=== PATIENT | female | born 1935 | race Caucasian/White ===

== ENCOUNTER 2019-11-14 21:59 | Inpatient (IN) | payer MEDICARE, SELFPAY ==
[~2019-11-14] VITALS: Ht 154.9 cm; Wt 50.3 kg
--- NOTE | 2019-11-14 21:59 | NUR ---
PT KIM ALS. TAKEN TO BED 10
[2019-11-14 22:03] VITALS: BP 93/42
[2019-11-14] MEDS ORDERED: NACL 0.9% 1,000 ML IV SCH (22:03)
[2019-11-14] MEDS ORDERED: cefTRIAXone 1,000 MG in DEXT 5% MINI-BAG PLUS 50 ML IV ONE (22:05)
--- NOTE | 2019-11-14 22:06 | NUR ---
84 YO F BIBA FOR C/C OF HYPOTENSION AFTER EATING A MARIJUANA BROWNIE. PT IS A&O X0. PER EMS REPORT PT HAD A FALL YESTERDAY ON RIGHT KNEE AND THE SON THOUGHT SHE WAS IN PAIN SO HE FED HER THE BROWNIE. PT HAS GENERALIZED WEAKNESS AND A&O x0 IS HER BASELINE. PUPILS ARE 3MM EQUAL BUT NON REACTIVE. PT PRSENTS WITH ASYMPTOMATIC BRADYCARDIA WITH A HR OF 55. PERIPHERAL PULSES ARE REGULAR AND EQUAL. S1S2 HEARD. LUNG SOUNDS CLEAR THROUGHOUT. BOWEL SOUNDS ACTIVE THROUGHOUT. PT PLACED ON RELIEF COOK. BED LOCKED AND IN LOWEST POSITION. SIDE RAILS X2. SONS NUMBER PER EMS- ALLERGIES UNKNOWN MED HX: UNKNOWN RX: UNKOWN
--- NOTE | 2019-11-14 22:20 | NUR ---
FLU SWAB, COVID SWAB, AND URINE COLLECTED BY [facility] CATH AND TAKEN TO LAB. PT TOLERATED WELL.
--- NOTE | 2019-11-14 22:30 | NUR ---
LAB CALLED TO COLLECT BLOOD SPECIMENS. LAB DRAW WAS UNSUCCESSFUL. ERMD MADE AWARE.
[2019-11-14 22:31] LABS: APPEARANCE,URINE CLEAR (CLEAR); BILIRUBIN,URINE NEGATIVE (NEGATIVE); BLOOD, URINE TRACE-L (NEGATIVE); COLOR,URINE YELLOW (YELLOW); LEUKOCYTE ESTERASE ,URINE NEGATIVE (NEGATIVE); NITRITE, URINE NEGATIVE (NEGATIVE); PH,URINE 5.5 (5.0-9.0); UGLUCOSE NEGATIVE (NEGATIVE)
[2019-11-14] MEDS ORDERED: NACL 0.9% 1,000 ML IV ONE (22:40)
--- NOTE | 2019-11-14 22:45 | NUR ---
PT CALM AND RESTING IN BED. SAFETY MEASURES IN PLACE.
[2019-11-14 23:11] LABS: RBC,URINE NONE SEEN /HPF (0-5); WBC,URINE NONE SEEN /HPF (0-5)
[2019-11-14 23:24] LABS: LYMPHOCYTES # (AUTO) 0.8 K/uL (2.5-16.5); NEUTROPHILS # (AUTO) 14.3 K/uL (1.8-7.7)
[2019-11-14] MEDS ORDERED: ATROPINE 1 MG/10 ML SYR IVP ONE (23:25)
[2019-11-14 23:34] LABS: BASOPHILS % (AUTO) 0.3 % (0.0-2.0); EOSINOPHILS % (AUTO) 0.3 % (0.0-4.0); HEMATOCRIT 22.7 % (36-48); LYMPHOCYTES % (AUTO) 5.1 % (20.5-51.1); MEAN CORPUSCULAR HEMOGLOBIN 25 pg (27-31); MEAN CORPUSCULAR HGB CONC 33 g/dL (33-37); MEAN CORPUSCULAR VOLUME 76.3 fL (80-94); MONOCYTES # (AUTO) 0.6 K/uL (0.8-1.0); MONOCYTES % (AUTO) 3.8 % (1.7-9.3); NEUTROPHILS % (AUTO) 90.5 % (42.2-75.2); PLATELET COUNT (AUTO) 141 K/uL (140-450); RED BLOOD CELL COUNT(AUTO) 2.97 MIL/uL (4.20-5.40); RED CELL DISTRIBUTION WIDTH 18.3 % (11.6-13.7)
[2019-11-14 23:36] LABS: WHITE BLOOD COUNT (AUTO) 15.8 K/uL (4.8-10.8)
[2019-11-14 23:37] LABS: HEMOGLOBIN 7.5 g/dL (12.0-16.0)
[2019-11-14 23:45] LABS: ALBUMIN 1.6 g/dL (3.4-5.0); ANION GAP 15.8 (8-16); ASPARTATE AMINOTRANSFERASE 39 U/L (15-37); CARBON DIOXIDE 15.5 mmol/L (21-32); CHLORIDE 99 mmol/L (98-107); CREATININE 2.5 mg/dL (0.6-1.3); GLUCOSE 91 mg/dL (74-106); SODIUM SERUM 128 mmol/L (136-145); TOTAL BILIRUBIN 0.4 mg/dL (0.0-1.0)
[2019-11-14] MEDS ORDERED: ATROPINE 0.4 MG/ML VIAL IVP ONE (23:45)
[2019-11-14 23:50] LABS: POTASSIUM 2.3 mmol/L (3.5-5.1); UREA NITROGEN, BLOOD 77 mg/dL (7-18)
--- NOTE | 2019-11-14 23:50 | NUR ---
PT TAKEN TO CT
[2019-11-15] VITALS (55 sets, daily range): BP systolic 82–146; BP diastolic 40–82
--- NOTE | 2019-11-15 00:01 | NUR ---
PT RETURN FROM CT
[2019-11-15] MEDS ORDERED: NOREPINEPHRINE 4 MG/4 ML VIAL IV ONE (00:26)
[2019-11-15] MEDS ORDERED: NOREPINEPHRINE 16 MG in DEXTROSE 5% 250 ML IV PRN ×2 (00:35→01:40)
[2019-11-15] MEDS ORDERED: NOREPINEPHRINE 4 MG in DEXTROSE 5% 250 ML IV ONE (00:35)
--- NOTE | 2019-11-15 01:00 | NUR ---
ASSISTED DR BISHOP AT BEDSIDE WITH INSERTING CENTRAL LINE. PT TOLERATED WELL.
--- NOTE | 2019-11-15 01:25 | NUR ---
X-Ray at bedside.
[2019-11-15] MEDS ORDERED: NACL 0.9% 1,000 ML IV SCH (01:38)
[2019-11-15] MEDS ORDERED: ACETAMINOPHEN 325 MG TAB PO PRN (01:40)
[2019-11-15] MEDS ORDERED: SODIUM PHOSPHATE 118 ML ENEM RC PRN (01:40)
[2019-11-15] MEDS ORDERED: DOCUSATE SODIUM 100 MG GELCAP PO PRN (01:40)
[2019-11-15] MEDS ORDERED: AZITHROMYCIN 500 MG in DEXTROSE 5% 250 ML IV SCH (01:40)
[2019-11-15] MEDS ORDERED: ONDANSETRON 4 MG/2 ML VIAL IM/IVP PRN (01:40)
[2019-11-15] MEDS ORDERED: BISACODYL 10 MG SUPP RC PRN (01:40)
[2019-11-15] MEDS ORDERED: KCL 20 MEQ/WATER INJ PREMIX 200 ML IV SCH ×2 (01:40→12:00)
--- NOTE | 2019-11-15 01:50 | NUR ---
PT WOKE UP AND IS TALKING. DENIES HAVING ANY PAIN. EQUAL CHEST RISE AND FALL. BED LOCKED AND IN LOWEST POSITION.
[2019-11-15] MEDS ORDERED: CALCIUM CHLORIDE 10% 1,000 MG in NACL 0.9% 100 ML IV SCH (02:15)
[2019-11-15 02:30] LABS: PROTHROMBIN TIME 9.9 secs (10.8-13.4)
--- NOTE | 2019-11-15 02:30 | NUR ---
PT SLEEPING IN BED COMFORTABLY. PT IS STILL A&OXO. EQUAL CHEST RISE AND FALL.
[2019-11-15 02:39] LABS: FREE T4 (FREE THYROXINE) 0.96 ng/dL (0.76-1.46); MAGNESIUM 1.8 mg/dL (1.8-2.4); PHOSPHORUS 4.3 mg/dL (2.5-4.9); THYROID STIMULATING HORMONE 0.21 uIU/mL (0.34-3.74)
[2019-11-15] MEDS ORDERED: CALCIUM CHLORIDE 10% 100 MG/ML SYR IVP ONE (03:05)
[2019-11-15] MEDS ORDERED: AZITHROMYCIN 500 MG INJ VIAL IV ONE (03:06)
[2019-11-15 03:40] LABS: BARBITURATE, URINE NEGATIVE ng/ml (NEG <=200); BENZODIAZEPINE, URINE NEGATIVE ng/mL (NEG <=200); CANNABINOID, URINE POSITIVE ng/mL (NEG <=50); COCAINE, URINE NEGATIVE ng/mL (NEG <=300); OPIATE, URINE NEGATIVE ng/mL (NEG <=2000); PHENCYCLIDINE SCREEN,URINE NEGATIVE ng/mL (NEG <=25)
--- NOTE | 2019-11-15 04:00 | NUR ---
INSERTED SULLIVAN CATHETER. OUTPUT OF 780MLS OBTAINED. PT TOLERATED WELL.
--- NOTE | 2019-11-15 04:48 | NUR ---
PT ASLEEP IN BED. EQUAL CHEST RISE AND FALL. BED LOCKED AND IN LOWEST POSITION.
--- NOTE | 2019-11-15 06:00 | NUR ---
PT SLEEPING COMFORTABLY IN BED. STATES 0/10 PAIN. EQUAL CHEST RISE AND FALL. BED LOCKED AND IN LOWEST POSITION. WILL CONTINUE TO MONITOR.
[2019-11-15 06:15] LABS: ANION GAP 18.6 (8-16); CARBON DIOXIDE 15.8 mmol/L (21-32); CHLORIDE 97 mmol/L (98-107); CREATININE 2.5 mg/dL (0.6-1.3); GLUCOSE 183 mg/dL (74-106); POTASSIUM 3.4 mmol/L (3.5-5.1); SODIUM SERUM 128 mmol/L (136-145)
[2019-11-15 06:16] LABS: HEMATOCRIT 29.7 % (36-48); MAGNESIUM 2.2 mg/dL (1.8-2.4); MEAN CORPUSCULAR HEMOGLOBIN 26 pg (27-31); MEAN CORPUSCULAR HGB CONC 34 g/dL (33-37); MEAN CORPUSCULAR VOLUME 75.9 fL (80-94); PHOSPHORUS 4.5 mg/dL (2.5-4.9); PLATELET COUNT (AUTO) 258 K/uL (140-450); RED BLOOD CELL COUNT(AUTO) 3.92 MIL/uL (4.20-5.40); RED CELL DISTRIBUTION WIDTH 18.4 % (11.6-13.7)
[2019-11-15 06:32] LABS: UREA NITROGEN, BLOOD 78 mg/dL (7-18)
[2019-11-15 06:56] LABS: CHOL/HDL RATIO 2.6 (1-4.5)
[2019-11-15 07:03] LABS: LYMPHOCYTES % (MANUAL) 5 % (20-46); MONOCYTES % (MANUAL) 3 % (5-12); WHITE BLOOD COUNT (AUTO) 25.1 K/uL (4.8-10.8)
--- NOTE | 2019-11-15 07:04 | NUR ---
RECIEVED CRITICAL LAB VALUE OF 25.1 WBC FROM [facility] IN THE LAB. BREE MADE AWARE.
--- NOTE | 2019-11-15 07:17 | NUR ---
REPORT GIVEN TO JANE ALEXANDER. TRANSFER OF CARE AT THIS TIME.
--- NOTE | 2019-11-15 08:05 | NUR ---
Recieved in ER bed 2 From ER Alert and yelling in slovak. LOC X 2. Win. Lungs diminished but clear. On 02 L NC No SOB Sat adequate. IV CVC infusing R IJ NS and Levophed. BP Adequate. Running SB Without ectopy. Baird draining clear yellow in adequate amounts. No Skin breakdown. Placed on Monitor.. Vitals and comfort to monitored Closely
[2019-11-15] MEDS ORDERED: HEPARIN PER PHARMACY MC PRN (08:55)
[2019-11-15] MEDS ORDERED: hePARIN / DEXT 5% PREMIX 250 ML IV SCH ×2 (08:55→09:10)
--- NOTE | 2019-11-15 09:10 | NUR ---
ABG RESULTS GIVEN TO DR. MARIA ELENA LAURA IN ICU BY Anne Marie HERMAN RCP NO NEW ORDERS
[2019-11-15] MEDS ORDERED: METO25TA PO (09:15)
[2019-11-15] MEDS ORDERED: LEVO0.124 PO (09:15)
[2019-11-15] MEDS ORDERED: KEP500 PO (09:15)
[2019-11-15] MEDS ORDERED: LOSA25TA43 PO (09:15)
[2019-11-15] MEDS ORDERED: ORE25 PO (09:15)
--- NOTE | 2019-11-15 09:20 | NUR ---
PATIENT HAS BEEN SCREENED AND CATEGORIZED HIGH NUTRITION RISK. PATIENT WILL BE SEEN WITHIN 1-2 DAYS OF ADMISSION. 11/14/19-11/16/[address]
--- NOTE | 2019-11-15 09:45 | NUR ---
In ICU bed 2 Sent from ER BP Low On Levophed Wbcs elevated Placed on Monitor VSS to monitored closely
--- NOTE | 2019-11-15 10:31 | NUR ---
DISCHARGE PLANNING: CONTACTED [facility], ABLE TO SPEAK TO CHARCOAL KILN BURNER ULISES. HE STATED HIM AND KADE IYER ARE THE ONES ASSIGNED TO THIS CASE TODAY. UPDATED HIM OF THE PATIENT'S CONDITION AND INFORMED HIM THAT COVID TESTING IS STILL PENDING. HE STATED THAT THEY NORMALLY PROVIDE AUTH FOR THE STAY WHEN COVID TEST IS STILL PENDING. WILL FOLLOW UP. Addendum: 11/15/19 at 1116 by Juana Stewart CM THIS IS AN 84 Y/O FEMALE PATIENT FROM HOME, WHO WAS BIBA DUE TO ALOC. UNABLE TO OBTAIN DUE TO PATIENT ALOC. INITIAL DIAGNOSIS OF SEPTIC SHOCK. CURRENT LABS INCLUDE WBC 25.1, H/H 10.0/29.7, BUN/CREA 78/2.5, NA/K 128/3.4, AMYLASE/LIPASE 135/488. UDS SHOWED POSITIVE FOR CANNABINOIDS. COVID TEST PENDING. URINE AND BLOOD CS PENDING. HEAD CT ON ADMISSION SHOWED NO SIGNIFICANT INTRACRANIAL PATHOLOGY IDENTIFIED. CXR ON ADMISSION SHOWED OPACITY AR THE LEFT LUNG BASE WHICH MAY REPRESENT CONSOLIDATION AND/OR EFFUSION AND MILD CARDIOMEGALY WITH PULMONARY VASCULAR CONGESTION. NEPHRO, CARDIO CONSULTS IN PLACE. ON AZITHROMYCIN, CEFTRIAXONE AND ZOSYN. DC PLAN PENDING ON PATIENT'S RESPONSE TO TREATMENT. Addendum: 11/16/19 at 1558 by Juana Stewart CM CONTACTED [facility] AT [phone], ABLE TO SPEAK TO CHARCOAL KILN BURNER HEATHER. SHE STATED KADE RUSSELL AND CHARCOAL KILN BURNER ULISES ARE THE ONES ASSIGNED TO THIS CASE TODAY. I REQUESTED TO BE TRANSFERRED TO EITHER ONE. SHE STATED THEY ARE BOTH ON ANOTHER CALL. SHE STATED AN AUTH HAD BEEN CREATED FOR THIS PATIENT'S STAY THIS MORNING. Addendum: 11/17/19 at 1208 by Juana Setwart CM PER NANDO DILLON COORDINATOR, WE RECEIVED APPROVAL FROM [facility] UNTIL TOMORROW. Addendum: 11/18/19 at 0859 by Juany Hollins CM DC PLANNING: CALLED [facility] [phone] SPOKE WITH MARCY CASE CHARCOAL KILN BURNER NOTIFIED HER PT IS STABLE FOR TRANSFER . PER MARCY CM WILL BE ASSIGNED AT 9:30 AM AND SHE WILL LET THE ASSIGNED CM . CM TO FOLLOW Addendum: 11/18/19 at 1141 by Juany Hollins CM DC PLANNING: RECEIVED A CALL FROM [facility] SPOKE WITH BRANDEE BRAUN ,UPDATED CLINICALS ,PER BRANDEE THERE IS NO ICU BED AT [facility] ,AND UNABLE TO TRANSFER PATIENT AND HE APPROVED THE STAY FOR TODAY AND HE PROVIDE THE AUTH# [id number]. CM TO FOLLOW
[2019-11-15] MEDS: DOPamine 400 MG/D5W PREMIX 250 ML IV PRN (10:35)
[2019-11-15] MEDS: MORPHINE SULFATE 2 MG/ML SYR IVP PRN (10:41)
--- NOTE | 2019-11-15 11:20 | NUR ---
Patient taken to CT.
--- NOTE | 2019-11-15 12:00 | NUR ---
patient back from CT
[2019-11-15] MEDS: PIPERACILLIN/TAZOBACTAM 2.25 GM in DEXTROSE 5% 50 ML IV SCH ×2 (12:23→20:20)
[2019-11-15] MEDS: SODIUM FERRIC GLUCONATE 125 MG in NACL 0.9% 100 ML IV SCH (13:12)
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
--- NOTE | 2019-11-15 15:00 | NUR ---
Patient resting in bed with eyes closed. No distress noted. VSS. Will continue to monitor. Addendum: 11/15/19 at 1503 by Agency 08 RN RN Side railsx2 and bed in lowest position. Head of bed is >45 degrees.
--- NOTE | 2019-11-15 15:00 | NUR ---
Speech therapist at bedside for swallow evaluation test. Patient passed evaluation.
--- NOTE | 2019-11-15 15:03 | NUR ---
ST CLARIFICATION NOTE Pt HAS FUNCTIONAL SWALLOW FOR Pt. Pt TOLERATED ICE CHIPS, PUREE, MSC, AND THIN LIQUIDS BY TSP, CUP, AND STRAW W/O DIFFICULTY OR OVERT S/S OF ASPIRATION OR PENETRATION NOTED. Pt HAD FULL DENTITION FOR ADEQUATE MASTICATION. AP TRANSFER AND SWALLOW RESPONSE WERE TIMELY WITH FULL LARYNGEAL ELEVATION AND EXCURSION. Pt WAS ABLE TO FEED SELF WITH TRAY SET UP AND SUPERVISION. REC MSC FOOD AND THIN LIQUIDS, CUP/STRAW OKAY, SINGLE SIPS ENCOURAGED. ASPIRATION PRECAUTIONS, ORAL CARE, TRAY SET UP, AND SUPERVISION NEEDED. D/C SKILLED ST FOR SWALLOW TX. Pt AT [facility].
[2019-11-15] MEDS: levETIRAcetam 100 MG/ML ORASYR PO SCH ×2 (16:05→20:20)
[2019-11-15] MEDS: THIAMINE 200 MG in NACL 0.9% 50 ML IV SCH ×2 (16:08→21:08)
[2019-11-15] MEDS: PANTOPRAZOLE 40 MG INJ VIAL IVP SCH (16:12)
[2019-11-15] MEDS: LACTOBACILLUS RHAMNOSUS GG 1 EACH CAP PO SCH (16:25)
--- NOTE | 2019-11-15 17:01 | NUR ---
Patient's daughter in law called; update given.
--- NOTE | 2019-11-15 17:02 | NUR ---
Patient resting in bed. No distress noted. Will continue to monitor.
--- NOTE | 2019-11-15 19:15 | NUR ---
RECEIVED PT FROM DAY SHIFT RN, DRY WEIGHT 50 KG, PT HAS RIJ TRIPLE LUMEN INFUSING DOPAMINE 10MCG/KG/HR, LEVOPHED 10 MCG /MIN, PT HAS SULLIVAN CATHETER DRAINING CLEAR YELLOW URINE, LUNGS SOUNDS CLEAR S1 AND S2 HEART SOUNDS HEARD BOWEL SOUNDS ACTIVE, PT DISPLAYS CONFUSION ALERT TO NAME AND SURROUNDINGS, DOESNT KNOW WHERE SHE IS, SPEAKS PRIMARILY ESTONIAN, ABLE TO FOLLOW SIMPLE COMMANDS, ASKS TO LEAVE BED, VITALS STABLE, SAFETY PROTOCOLS IN PLACE WILL CONTINUE TO MONITOR PT
--- NOTE | 2019-11-15 19:29 | NUR ---
Report given JANE Ferraro
--- NOTE | 2019-11-15 20:15 | NUR ---
PT HAD HAD ORDER FOR HEPARIN SUBQ WELL DRIP; DRIP ORDER WAS DC AT START OF SHIFT, INFORMED DR. MASON AND RECEIVED ORDERS TO HOLD SUBQ FOR PM SHIFT
[2019-11-15] MEDS ORDERED: THIAMINE 200 MG/2 ML VIAL ONE (20:34)
[2019-11-15] MEDS: NACL 0.9% 1,000 ML IV SCH (21:15)
--- NOTE | 2019-11-15 22:06 | NUR ---
PT STEP DAUGHTER CALLED FOR UPDATE PROVIDED CONTACT INFORMATION FOR PT FAMILY MEMBERS WANTS TO BE CALLED IN THE MORNING WITH UPDATE ON PT AND POC MOVING FORWARD FACE SHEET UPDATED
[2019-11-16] VITALS (96 sets, daily range): BP systolic 69–157; BP diastolic 37–80
[2019-11-16] MEDS: DOPamine 400 MG/D5W PREMIX 250 ML IV PRN ×2 (00:37→21:03)
[2019-11-16] MEDS: AZITHROMYCIN 250 MG in DEXTROSE 5% 250 ML IV SCH (04:31)
[2019-11-16] MEDS: NACL 0.9% 1,000 ML IV SCH (04:55)
[2019-11-16] MEDS ORDERED: LEVOTHYROXINE 0.025 MG TAB ONE ×2 (05:30→05:41)
[2019-11-16] MEDS ORDERED: LEVOTHYROXINE 0.1 MG TAB ONE ×2 (05:30→05:42)
[2019-11-16] MEDS: PIPERACILLIN/TAZOBACTAM 2.25 GM in DEXTROSE 5% 50 ML IV SCH ×3 (05:34→20:35)
[2019-11-16 06:08] LABS: BASOPHILS % (AUTO) 0.2 % (0.0-2.0); EOSINOPHILS # (AUTO) 0.1 K/uL (0-0.4); EOSINOPHILS % (AUTO) 0.9 % (0.0-4.0); HEMATOCRIT 28.1 % (36-48); HEMOGLOBIN 9.3 g/dL (12.0-16.0); LYMPHOCYTES # (AUTO) 0.9 K/uL (2.5-16.5); LYMPHOCYTES % (AUTO) 6.6 % (20.5-51.1); MEAN CORPUSCULAR HEMOGLOBIN 25 pg (27-31); MEAN CORPUSCULAR HGB CONC 33 g/dL (33-37); MEAN CORPUSCULAR VOLUME 75.7 fL (80-94); MONOCYTES # (AUTO) 0.5 K/uL (0.8-1.0); MONOCYTES % (AUTO) 3.5 % (1.7-9.3); NEUTROPHILS # (AUTO) 12.7 K/uL (1.8-7.7); NEUTROPHILS % (AUTO) 88.8 % (42.2-75.2); PLATELET COUNT (AUTO) 196 K/uL (140-450); RED BLOOD CELL COUNT(AUTO) 3.71 MIL/uL (4.20-5.40); RED CELL DISTRIBUTION WIDTH 18.4 % (11.6-13.7); WHITE BLOOD COUNT (AUTO) 14.3 K/uL (4.8-10.8)
[2019-11-16] MEDS ORDERED: LEVOTHYROXINE 0.025 MG TAB PO SCH (06:30)
[2019-11-16] MEDS: LEVOTHYROXINE 0.025 MG, LEVOTHYROXINE 0.1 MG PO SCH ×2 (06:33)
[2019-11-16] MEDS: ASCORBIC ACID INJ 1,500 MG in NACL 0.9% 100 ML IV SCH ×6 (06:33→23:28)
[2019-11-16 06:38] LABS: ALBUMIN 1.9 g/dL (3.4-5.0); ANION GAP 20.4 (8-16); ASPARTATE AMINOTRANSFERASE 21 U/L (15-37); CHLORIDE 104 mmol/L (98-107); CREATININE 1.9 mg/dL (0.6-1.3); GLUCOSE 101 mg/dL (74-106); LACTATE DEHYDROGENASE 149 U/L (81-234); MAGNESIUM 1.8 mg/dL (1.8-2.4); PHOSPHORUS 3.2 mg/dL (2.5-4.9); SODIUM SERUM 138 mmol/L (136-145); TOTAL BILIRUBIN 0.4 mg/dL (0.0-1.0); UREA NITROGEN, BLOOD 51 mg/dL (7-18)
[2019-11-16 07:25] LABS: POTASSIUM 2.4 mmol/L (3.5-5.1)
[2019-11-16] MEDS ORDERED: POTASSIUM CHLORIDE 10 MEQ TABER PO SCH (08:00)
--- NOTE | 2019-11-16 08:00 | NUR ---
REPORT RECEIVED FROM ANNAMARIA RN, PT RESTING WITH EYES CLOSED, AROUSES EASILY TO VOICE, ORIENTED TO SELF, SOME SITUATIONS, OCCASIONAL CONFUSION AND SPEAKS IN SPANISH AND BENGALI MIXED, FOLLOWS COMMANDS, RESP EVEN UNLABORED, ON 2L NC O2, EQUAL CHEST RISE AND FALL, SKIN WARM DRY COLOR WNL, PT NPO X MEDS, ABD SOFT NON DISTENDED, PT WITH SULLIVAN CATH CLEAR YELLOW URINE TO GRAVITY, HEMORRHOIDS NOTED, SKIN INTACT, POC REVIEWED, WILL CONTINUE TO MONITOR
[2019-11-16] MEDS: LACTOBACILLUS RHAMNOSUS GG 1 EACH CAP PO SCH (08:33)
[2019-11-16] MEDS: levETIRAcetam 100 MG/ML ORASYR PO SCH ×2 (08:33→20:35)
[2019-11-16] MEDS: PANTOPRAZOLE 40 MG INJ VIAL IVP SCH (08:33)
--- NOTE | 2019-11-16 08:55 | NUR ---
DR LAURA, DR DECKER AT BEDSIDE FOR EVAL
[2019-11-16] MEDS: LACTULOSE 20 GM/30 ML UDC PO SCH (09:00)
[2019-11-16] MEDS ORDERED: POTASSIUM CHLORIDE 40 MEQ, LIDOCAINE MPF 1% 25 MG in NACL 0.9% 250 ML IV SCH (09:00)
--- NOTE | 2019-11-16 09:05 | NUR ---
RICARDO PO MEDS WITHOUT PROBLEM
[2019-11-16 09:15] LABS: TRANSFERRIN 191 mg/dL (149-313)
[2019-11-16] MEDS ORDERED: PHENYLEPHRINE 0.25% 1 EA SUPP RC PRN (09:20)
--- NOTE | 2019-11-16 09:20 | NUR ---
SOFT, LOOSE BROWN BM X1 MODERATE AMT, PERICARE DONE, PT ABLE TO TURN HERSELF SIDE TO SIDE WITH MINIMAL ASSIST, SULLIVAN CARE DONE, ORAL CARE DONE, HCG WIPE DONE.
--- NOTE | 2019-11-16 10:32 | NUR ---
DAUGHTER SANDEEP CALLED TO SPEAK WITH PT, PHONE TAKEN TO PT.
[2019-11-16] MEDS: SODIUM BICARBONATE 8.4% 100 MEQ, POTASSIUM CHLORIDE 20 MEQ in DEXTROSE 5% 1,000 ML IV SCH (10:47)
--- NOTE | 2019-11-16 11:52 | NUR ---
BUFFET ATTENDANT AT BEDSIDE FOR ECHOCARDIOGRAM
[2019-11-16 11:54] LABS: FERRITIN 192 ng/mL (15 - 150)
[2019-11-16] MEDS: THIAMINE 200 MG in NACL 0.9% 50 ML IV SCH ×2 (12:19→20:35)
--- NOTE | 2019-11-16 13:00 | NUR ---
P.T. NOTES UNABLE TO SEE PATIENT FOR P.Ramón MONTES DUE TO HER BP IS LOW (72/32) AND CHARGE NURSE ANNAMARIA WAS INFORMED THAT WE'LL HOLD THE OUT OF BED ACTIVITIES WHEN HER BP IS MORE AT A STABLE READING. PLAN: FOLLOW UP AGAIN TOMORROW IF SHE REMAINS IN THIS HOSPITAL.
[2019-11-16] MEDS ORDERED: MAG SULF 2000 MG/WATER PREMIX 100 ML IV ONE (13:20)
--- NOTE | 2019-11-16 13:45 | NUR ---
DOPAMIN INCREASED TO 10MCG/KG/MIN, PT WITH SMALL BM, PERICARE DONE, REPOSITIONED, HEMORRHOID SUPPOSITORY PLACED IN RECTUM BUT PT EXPELLED IMMEDIATELY, REFUSES RE-ADMINISTRATION.
[2019-11-16] MEDS: SODIUM FERRIC GLUCONATE 125 MG in NACL 0.9% 100 ML IV SCH (14:37)
--- NOTE | 2019-11-16 14:53 | NUR ---
11/16/19 RD INITIAL ASSESSMENT COMPLETED PLEASE REFER TO NUTRITION ASSESSMENT UNDER CARE ACTIVITY FOR ESTIMATED NUTRITIONAL NEEDS. 1. CONTINUE [facility] SOFT DIET TOLERATED 2. RECOMMEND ENSURE BID 3. PROVIDE ASSISTANCE WITH MEALS, TRAY SET UP AND SUPERVISION PER FOREIGN LEGAL CONSULTANT 4. ENCOURAGE PO INTAKE >75% 5. RD TO FOLLOW-UP 2-3 DAYS, HIGH RISK MELANI LUIS, RD
[2019-11-16 15:10] LABS: ANION GAP 16.2 (8-16); CARBON DIOXIDE 19.7 mmol/L (21-32); CHLORIDE 105 mmol/L (98-107); CREATININE 1.7 mg/dL (0.6-1.3); GLUCOSE 117 mg/dL (74-106); POTASSIUM 3.9 mmol/L (3.5-5.1); SODIUM SERUM 137 mmol/L (136-145); UREA NITROGEN, BLOOD 40 mg/dL (7-18)
--- NOTE | 2019-11-16 16:20 | NUR ---
PT RESTING WITH EYES CLOSED, AROUSES EASILY, SPEAKS WITH KHMER MIXED WITH TELUGU, REPOSITIONED, PILLOWS PLACED FOR COMFORT, WILL CONTINUE TO MONITOR.
--- NOTE | 2019-11-16 18:30 | NUR ---
PT ATE ONE FRUIT CUP WITHOUT ASSIST, SWALLOWS WELL WITHOUT PROBLEM.
--- NOTE | 2019-11-16 19:16 | NUR ---
REPORT RECEIVED FROM AM NURSE AT BEDSIDE. PT IN STABLE CONDITION. AAOX1-2. PT AWAKE AND ALERT BUT CONFUSED AT TIMES. NO COMPLAINTS OF PAIN. BUT DOES RANDOMLY SCREAM IN PAIN. NO SOB ON 2L O2 VIA NC. AFEBRILE. PT IS ABLE TO AMBULATE BUT IS ON BEDREST. PT IS ON MECHANICAL SOFT DIET. DRY WEIGHT 50KG. IV SITE L AC 18G SL PATENT AND INTACT. R IJ TRIPLE LUMEN CENTRAL LINE RUNNING DOPAMINE@10MCG/KG/MIN OR 18.75ML/HR PATENT AND INTACT. SECOND LUMEN RUNNING SODIUM BICARB+POTASSIUM@75ML/HR PATENT AND INTACT. THIRD LINE RUNNING NS@TKO OR 5ML/HR AND RUNNING IVPB PATENT AND INTACT. SKIN WARM, DRY, AND INTACT WITH NO OPEN WOUNDS. BED LOCKED IN LOW POSITION. CALL SOMMER WITHIN REACH. SAFETY PRECAUTION IN PLACE. ALL NEEDS MET AT THIS TIME.
--- NOTE | 2019-11-16 20:35 | NUR ---
ZOSYN HUNG AND RUNNING. VITAMIN B1 THIAMINE HUNG AND RUNNING. KEPPRA GIVEN PO. PT REFUSED HEPARIN.
--- NOTE | 2019-11-16 21:03 | NUR ---
NEW BAG DOPAMINE HUNG FOR CONTINUOUS DRIP.
[2019-11-16] MEDS: MORPHINE SULFATE 2 MG/ML SYR IVP PRN (21:25)
--- NOTE | 2019-11-16 21:30 | NUR ---
PT O2 SAT 85%. CHANGED POSITION OF THE O2 SAT SENSOR TO THE LEFT INDEX FINGER AND O2 SAT NOW 98% ON 2L O2 VIA NC.
--- NOTE | 2019-11-16 23:28 | NUR ---
SWETAOR HUNG AND RUNNING. PT TOLERATING WELL.
[2019-11-17] VITALS (91 sets, daily range): BP systolic 72–136; BP diastolic 38–74
[2019-11-17] MEDS: SODIUM BICARBONATE 8.4% 100 MEQ, POTASSIUM CHLORIDE 20 MEQ in DEXTROSE 5% 1,000 ML IV SCH (01:37)
--- NOTE | 2019-11-17 01:37 | NUR ---
SODIUM BICARB WITH POTASSIUM HUNG IVF.
[2019-11-17] MEDS: AZITHROMYCIN 250 MG in DEXTROSE 5% 250 ML IV SCH (04:01)
--- NOTE | 2019-11-17 04:01 | NUR ---
MICKX HUNG AND RUNNING.
[2019-11-17] MEDS: PIPERACILLIN/TAZOBACTAM 2.25 GM in DEXTROSE 5% 50 ML IV SCH ×3 (05:32→21:00)
--- NOTE | 2019-11-17 05:32 | NUR ---
CAROL HUNG AND RUNNING.
[2019-11-17] MEDS ORDERED: LEVOTHYROXINE 0.025 MG TAB ONE (06:00)
[2019-11-17] MEDS ORDERED: LEVOTHYROXINE 0.1 MG TAB ONE (06:01)
[2019-11-17] MEDS: ASCORBIC ACID INJ 1,500 MG in NACL 0.9% 100 ML IV SCH ×4 (06:03→23:00)
[2019-11-17] MEDS: LEVOTHYROXINE 0.025 MG, LEVOTHYROXINE 0.1 MG PO SCH ×2 (06:03)
--- NOTE | 2019-11-17 06:03 | NUR ---
ANUM TOLENTINO AND RUNNING. Addendum: 11/17/19 at 0645 by John Hart RN SYNTHROID GIVEN PO.
[2019-11-17 06:09] LABS: MAGNESIUM 1.3 mg/dL (1.8-2.4); PHOSPHORUS 1.6 mg/dL (2.5-4.9)
[2019-11-17 06:11] LABS: ANION GAP 13.9 (8-16); CHLORIDE 100 mmol/L (98-107); CREATININE 1.4 mg/dL (0.6-1.3); GLUCOSE 138 mg/dL (74-106); SODIUM SERUM 135 mmol/L (136-145); UREA NITROGEN, BLOOD 25 mg/dL (7-18)
--- NOTE | 2019-11-17 06:22 | NUR ---
CRITICAL LAB VALUE CALLED IN FOR POTASSIUM 2.9. DR. DECKER NOTIFIED. NEW ORDERS GIVEN.
[2019-11-17] MEDS ORDERED: POTASSIUM CHLORIDE 10 MEQ TABER PO SCH (06:30)
[2019-11-17] MEDS ORDERED: POTASSIUM CHLORIDE 40 MEQ, LIDOCAINE MPF 1% 25 MG in NACL 0.9% 250 ML IV SCH ×2 (06:30→13:15)
[2019-11-17 06:33] LABS: POTASSIUM 2.9 mmol/L (3.5-5.1)
--- NOTE | 2019-11-17 06:39 | NUR ---
KDUR GIVEN PO. PT TOLERATED WELL.
[2019-11-17 06:57] LABS: BASOPHILS % (AUTO) 0.2 % (0.0-2.0); EOSINOPHILS # (AUTO) 0.2 K/uL (0-0.4); EOSINOPHILS % (AUTO) 1.7 % (0.0-4.0); HEMOGLOBIN 8.7 g/dL (12.0-16.0); LYMPHOCYTES # (AUTO) 0.9 K/uL (2.5-16.5); LYMPHOCYTES % (AUTO) 8.7 % (20.5-51.1); MEAN CORPUSCULAR HEMOGLOBIN 26 pg (27-31); MEAN CORPUSCULAR HGB CONC 35 g/dL (33-37); MEAN CORPUSCULAR VOLUME 75.5 fL (80-94); MONOCYTES # (AUTO) 0.4 K/uL (0.8-1.0); MONOCYTES % (AUTO) 3.7 % (1.7-9.3); NEUTROPHILS % (AUTO) 85.7 % (42.2-75.2); PLATELET COUNT (AUTO) 154 K/uL (140-450); RED BLOOD CELL COUNT(AUTO) 3.31 MIL/uL (4.20-5.40); RED CELL DISTRIBUTION WIDTH 18.7 % (11.6-13.7); WHITE BLOOD COUNT (AUTO) 10.5 K/uL (4.8-10.8)
--- NOTE | 2019-11-17 07:22 | NUR ---
REPORT GIVEN TO AM NURSE AT BEDSIDE. PT IN STABLE CONDITION.
--- NOTE | 2019-11-17 07:28 | NUR ---
REPORT RECEIVED FROM NIGHT RN, PT RESTING WITH EYES CLOSED, AROUSES EASILY TO VOICE, ORIENTED TO SELF, SOME SITUATIONS, OCCASIONAL CONFUSION AND SPEAKS IN TAMAZIGHT AND JAPANESE MIXED, FOLLOWS COMMANDS, RESP EVEN UNLABORED, ON 2L NC O2, EQUAL CHEST RISE AND FALL, SKIN WARM DRY COLOR WNL, VITALS STABLE ON MONITOR HR 75, BP 126/60, RR 16, O2SAT 100%, ABD SOFT NON DISTENDED, PT WITH SULLIVAN CATH CLEAR YELLOW URINE TO GRAVITY, R IJ TRIPLE LUMEN SITE WNL, INFUSING DOPAMINE AT 10MCG/KG/MIN (18.74), IVF WITH BICARB +K AT 75ML/HR, DRY WT 50KG. WILL CONTINUE TO MONITOR
--- NOTE | 2019-11-17 07:43 | NUR ---
DR TIERNEY AND MEDICAL TEAM AT BEDSIDE
[2019-11-17] MEDS: LACTOBACILLUS RHAMNOSUS GG 1 EACH CAP PO SCH (08:01)
[2019-11-17] MEDS: PANTOPRAZOLE 40 MG INJ VIAL IVP SCH (08:02)
[2019-11-17] MEDS: levETIRAcetam 100 MG/ML ORASYR PO SCH ×2 (08:02→21:02)
[2019-11-17] MEDS: LACTULOSE 20 GM/30 ML UDC PO SCH (08:03)
[2019-11-17] MEDS: THIAMINE 200 MG in NACL 0.9% 50 ML IV SCH ×2 (08:03→21:00)
--- NOTE | 2019-11-17 08:15 | NUR ---
AM MEDS GIVEN, RICARDO PO WELL, REFUSES TO EAT BREAKFST, STATES SHE IS NOT HUNGRY, PT REFUSES HEPARIN INJECTION, DR DECKER AWARE, PT SENSITIVE AND SCREAMS TO ANY LIGHT TOUCH, YELLS EVERY TIME BP CUFF TIGHTENS, PT REASSURED, RE-ORIENTED, SMALL SOFT BROWN BMX1, PERICARE DONE, SULLIVAN CARE DONE, RE POSITIONED FOR COMFORT.
--- NOTE | 2019-11-17 08:49 | NUR ---
DR LAURA AT BEDSIDE, INSTRUCTION TO CONTINUE WEANING OFF DOPAMINE.
--- NOTE | 2019-11-17 11:01 | NUR ---
SUMANTH MARTINES CALLED FOR UPDATE ON PT CONDITION.
--- NOTE | 2019-11-17 11:02 | NUR ---
PHYSICAL THERAPY [place] AT BEDSIDE
[2019-11-17] MEDS: SODIUM FERRIC GLUCONATE 125 MG in NACL 0.9% 100 ML IV SCH (12:19)
[2019-11-17] MEDS: DOPamine 400 MG/D5W PREMIX 250 ML IV PRN (12:38)
--- NOTE | 2019-11-17 12:40 | NUR ---
PT IRRITABLE, YELLS AND STATES "JUST LET ME SLEEP!", OFFERED LUNCH BUT STATES SHE IS NOT HUNGRY, ENCOURAGED TO EAT SML AMOUT, RICARDO GARCIA WITH ASSIST.
--- NOTE | 2019-11-17 15:08 | NUR ---
PT YELLING, SMALL BM/SMEAR NOTED ON PAD, PERICARE DONE, RE POSITIONED, PT SCREAMS WITH EACH BP CHECK, PT REMAINS ON DOPAMINE DRIP AT 5MCG/KG/MIN, CARDIOLOGY DR MCGRATH AT BEDSIDE.
--- NOTE | 2019-11-17 19:28 | NUR ---
BEDSIDE REPORT GIVEN TO VISITING PROFESSOR NURSE.
--- NOTE | 2019-11-17 20:00 | NUR ---
PT IS ALERT BUT CONFUSED. ABLE TO FOLLOW SIMPLE COMMANDS. PT ON ROOM AIR WITH NO RESPIRATORY DISTRESS. AWAKENS TO VOICE EASILY. ORAL MUCOSA PINK AND MOIST. SKIN WARM, DRY, INTACT. ORAL MUCOSA PINK AND MOIST. ON DOPAMINE DRIP @ 5MCG/KG/MIN. DRY WEIGHT OF 50 KG. HAS RIGHT IJ TRIPLE LUMEN AND PERIPHERAL LINE ON THE LEFT AC, ASYMPTOMATIC AND PATENT. ABDOMEN SOFT AND NON-DISTENDED. NO COMPLAINTS/ CONCERNS AT THIS TIME. ON SULLIVAN CATHETER DRAINING TO GRAVITY. VITAL SIGNS STABLE ON THE MONITOR. WILL CONTINUE TO MONITOR PT.
--- NOTE | 2019-11-17 20:55 | NUR ---
PATIENT SEEN AND ASSESS. PATIENT IS ON ROOM AIR WITH SPO2 OF 96%. PATIENT IS IN NO APPARENT RESPIRATORY DISTRESS AT THIS TIME. WILL CONTINUE TO MONITOR.
--- NOTE | 2019-11-17 22:00 | NUR ---
PT RESTING IN BED WITH EYES CLOSED. REPOSITIONED. NO COMPLAINTS MADE. WILL CONTINUE TO MONITOR.
[2019-11-18] VITALS (52 sets, daily range): BP systolic 81–126; BP diastolic 41–67
--- NOTE | 2019-11-18 00:30 | NUR ---
PT LAYING IN BED COMFORTABLY. NO S/S OF DISTRESS NOTED. NO COMPLAINTS OF PAIN. NO SOB. AFEBRILE.
--- NOTE | 2019-11-18 01:00 | NUR ---
BP OF 81/41. PT TURNED AND REPOSITIONED AND FIXED BP CUFF PLACEMENT. BP GOES UP TO 100/60. PT STILL ON DOPAMINE 5MCG/KG/MIN. WILL CONTINUE TO MONITOR.
[2019-11-18] MEDS: AZITHROMYCIN 250 MG in DEXTROSE 5% 250 ML IV SCH (03:25)
--- NOTE | 2019-11-18 03:30 | NUR ---
ZITHROMAX INFUSING AT 250ML/HR AT THIS TIME VIA RIGHT IJ. PT RESTING IN BED WITH EYES CLOSED. WILL CONTINUE TO MONITOR.
[2019-11-18] MEDS: PIPERACILLIN/TAZOBACTAM 2.25 GM in DEXTROSE 5% 50 ML IV SCH ×2 (04:51→12:35)
--- NOTE | 2019-11-18 04:53 | NUR ---
PT TOLERATING IV ANTIBIOTICS. ZOSYN HUNG AND INFUSING @ 100MLS/HR (50ML BAG). WILL CONTINUE TO MONITOR.
--- NOTE | 2019-11-18 05:30 | NUR ---
ASCORBIC ACID INFUSING AT THIS TIME. NO CONCERNS AND COMPLAINTS MADE. WILL CONTINUE TO MONITOR.
[2019-11-18] MEDS: ASCORBIC ACID INJ 1,500 MG in NACL 0.9% 100 ML IV SCH ×3 (05:38→18:00)
[2019-11-18] MEDS ORDERED: LEVOTHYROXINE 0.025 MG TAB ONE (05:39)
[2019-11-18] MEDS: LEVOTHYROXINE 0.025 MG, LEVOTHYROXINE 0.1 MG PO SCH ×2 (05:56)
--- NOTE | 2019-11-18 05:59 | NUR ---
PT HAD A BOWEL MOVEMENT. PT CLEANED, BERTA CARE, SULLIVAN CARE, ORAL CARE DONE. TURNED AND REPOSITIONED. WILL CONTINUE TO MONITOR.
--- NOTE | 2019-11-18 06:17 | NUR ---
PATIENT STILL REMAINS ON ROOM AIR. PATIENT IS IN NO RESPIRATORY DISTRESS AT THIS TIME. WILL CONTINUE TO MONITOR.
[2019-11-18 06:20] LABS: HEMATOCRIT 24.5 % (36-48); HEMOGLOBIN 8.4 g/dL (12.0-16.0); MEAN CORPUSCULAR HEMOGLOBIN 26 pg (27-31); MEAN CORPUSCULAR HGB CONC 34 g/dL (33-37); MEAN CORPUSCULAR VOLUME 76.6 fL (80-94); PLATELET COUNT (AUTO) 131 K/uL (140-450); RED CELL DISTRIBUTION WIDTH 18.7 % (11.6-13.7); WHITE BLOOD COUNT (AUTO) 10.4 K/uL (4.8-10.8)
[2019-11-18 06:55] LABS: ANION GAP 12.3 (8-16); CARBON DIOXIDE 29.6 mmol/L (21-32); CHLORIDE 100 mmol/L (98-107); CREATININE 1.1 mg/dL (0.6-1.3); GLUCOSE 109 mg/dL (74-106); SODIUM SERUM 139 mmol/L (136-145); UREA NITROGEN, BLOOD 15 mg/dL (7-18)
[2019-11-18 07:07] LABS: MAGNESIUM 1.1 mg/dL (1.8-2.4); PHOSPHORUS 1.6 mg/dL (2.5-4.9)
--- NOTE | 2019-11-18 07:11 | NUR ---
REPORT GIVEN TO AM NURSE FOR CONTINUITY OF CARE. ENDORSED.
--- NOTE | 2019-11-18 07:25 | NUR ---
REPORT RECEIVED FROM NIGHT RN, PT RESTING WITH EYES CLOSED, AROUSES EASILY TO VOICE, ORIENTED TO SELF ONLY, CONFUSED, SPEAKS IN KINYARWANDA AND SAUDI ARABIAN MIXED, FOLLOWS COMMANDS, RESP EVEN UNLABORED, ON RA, EQUAL CHEST RISE AND FALL, SKIN WARM DRY COLOR WNL, VITALS STABLE ON MONITOR HR 97 BP 104/67, RR 14, O2SAT 97%, ABD SOFT NON DISTENDED, PT WITH SULLIVAN CATH CLEAR YELLOW URINE TO GRAVITY, R IJ TRIPLE LUMEN SITE WNL, INFUSING DOPAMINE AT 5MCG/KG/MIN (9.37), DRY WT 50KG. WILL CONTINUE TO MONITOR
[2019-11-18 07:49] LABS: LYMPHOCYTES % (MANUAL) 13 % (20-46); MONOCYTES % (MANUAL) 5 % (5-12)
[2019-11-18 08:55] LABS: POTASSIUM 2.9 mmol/L (3.5-5.1)
[2019-11-18] MEDS: LACTULOSE 20 GM/30 ML UDC PO SCH (09:00)
[2019-11-18] MEDS ORDERED: KCL 20 MEQ/WATER INJ PREMIX 200 ML IV SCH (09:15)
[2019-11-18] MEDS: PANTOPRAZOLE 40 MG INJ VIAL IVP SCH (09:22)
[2019-11-18] MEDS: LACTOBACILLUS RHAMNOSUS GG 1 EACH CAP PO SCH (09:23)
[2019-11-18] MEDS: levETIRAcetam 100 MG/ML ORASYR PO SCH (09:23)
[2019-11-18] MEDS: THIAMINE 200 MG in NACL 0.9% 50 ML IV SCH (09:31)
--- NOTE | 2019-11-18 11:05 | NUR ---
BM X1, PERICARE DONE, RE POSITIONED.
--- NOTE | 2019-11-18 11:59 | NUR ---
[facility] KAELYN ZUNIGA CALLED FOR PT'S CONDITION.
--- NOTE | 2019-11-18 13:40 | NUR ---
SON SAMANTHA ON THE PHONE WITH PT, CONDITION UPDATED, NOTIFIED HIM THAT SHE IS OFF DOPAMINE FOR BP, PT C/O KNEE PAIN, SAMANTHA STATES SHE USES LIDOCAINE CREAM AT HOME, DR WEBB NOTIFIED, SON ALSO ASKS A DOCTOR TO CALL HIM FOR UPDATE, DR WEBB TO REMIND DR DECKER.
[2019-11-18] MEDS ORDERED: MAG SULF 2000 MG/WATER PREMIX 100 ML IV SCH (14:00)
[2019-11-18] MEDS ORDERED: LIDOCAINE OINTMENT 5% 35 GM TUBE TP PRN (14:10)
[2019-11-18] MEDS ORDERED: MENTHOL/METHYL 10%-15% 114 GM TUBE TP PRN (14:20)
--- NOTE | 2019-11-18 15:05 | NUR ---
LOOSE BMX, PERICARE DONE, ANUSOL APPLIED TO HEMORRHOID, BENGAY APPLIED TO BILAT KNEES.
--- NOTE | 2019-11-18 17:45 | NUR ---
REPORT CALLED TO [facility] RN RL, PT TO GO TO ROOM 213, PT'S FAMILY SANDEEP PALMER ALEX CALLED BUT NO ANSWER AT EACH OF THEM, LEFT MESSAGE ON HANK'S VOICE MAIL REGARDING TRANSFER TO [facility].
[2019-11-18] MEDS ORDERED: PIPE50SO5 IV (18:19)
[2019-11-18] MEDS ORDERED: AZIT250T3 PO (18:19)
[2019-11-18 18:20] LABS: ANION GAP 9.2 (8-16); CARBON DIOXIDE 29.3 mmol/L (21-32); CHLORIDE 104 mmol/L (98-107); CREATININE 1.1 mg/dL (0.6-1.3); GLUCOSE 102 mg/dL (74-106); POTASSIUM 3.5 mmol/L (3.5-5.1); SODIUM SERUM 139 mmol/L (136-145); UREA NITROGEN, BLOOD 14 mg/dL (7-18)
--- NOTE | 2019-11-18 18:40 | NUR ---
ESTEL[facility] CALLED, NOTIFIED OF TRANSFER TO [facility] BY LACIE LARA
--- NOTE | 2019-11-18 19:20 | NUR ---
[facility] HERE TO [facility] AUDITOR PT, REPORT GIVEN TO EMT, ALL BELONGINGS INCLUDING CLOTHING, PILLOW, TOWEL, EARINGS, NECKLACE, SWEATER, SHIRT TAKEN WITH HER TO [facility].
[2019-11-19] MEDS ORDERED: SODIUM PHOS / POTASSIUM PHOS 1 PKT PDR PO SCH (09:00)
[2019-11-19] MEDS ORDERED: POTASSIUM CHLORIDE 10 MEQ TABER PO SCH (09:00)
== END 2019-11-18 19:15 | disposition short-term general hospital (02) | DRG 871 ==
LOC: MED 21:59 → EEVIPCON 21:59 → MIC 11-15 01:57 → UNDODISIN 11-18 19:35
PROVIDERS: ADMIT General Practice; ATTEND General Practice
PROC: 02HV33Z Insertion of Infusion Device into Superior Vena Cava, Percutaneous Approach (ICD-10-PCS; principal; 2019-11-15)
DX: A41.9 Sepsis, unspecified organism (principal); R65.21 Severe sepsis with septic shock; J96.01 Acute respiratory failure with hypoxia; G92 Toxic encephalopathy; I21.A1 Myocardial infarction type 2; N17.0 Acute kidney failure with tubular necrosis; E43 Unspecified severe protein-calorie malnutrition; J69.0 Pneumonitis due to inhalation of food and vomit; E87.1 Hypo-osmolality and hyponatremia; E87.2 Acidosis; T40.7X1A Poisoning by cannabis (derivatives), accidental (unintentional), initial encounter; D64.9 Anemia, unspecified; I10 Essential (primary) hypertension; E83.51 Hypocalcemia; E87.6 Hypokalemia; K44.9 Diaphragmatic hernia without obstruction or gangrene; Z68.21 Body mass index [BMI] 21.0-21.9, adult; Z03.818 Encounter for observation for suspected exposure to other biological agents ruled out; Y92.89 Other specified places as the place of occurrence of the external cause
CPT/HCPCS: 36415; 36600; 70450; 71045; 71250; 80048; 80053; 80305; 81001; 82140; 82150; 82550; 82607; 82728; 82746; 82803; 83036; 83540; 83605; 83615; 83690; 83735; 83880; 84100; 84134; 84439; 84443; 84484; 85025; 85045; 85379; 85610; 85651; 85730; 86140; 87040; 87081; 87086; 87804; 92610; 93005; 96361; 96365; 96366; 96367; 96368; 96375; 97110; 97112; 97116; 97161-GP; 97530; 99291; A4649; C9113; J0456; J0461; J0696; J1265; J1644; J2001; J2270; J2543; J2916; J3411; J3475; J3480; J3490; J7030; J7060; Q0092